=== PATIENT | male | born 1955 | race Caucasian/White ===

== ENCOUNTER → 2020-08-01 14:41 | Outpatient (CLI) | payer BC, SELFPAY ==
--- NOTE | ~2020-08-01 | CT_ITS ---
EXAMINATION: CT lung screening DATE: 08/01/2020 14:55 INDICATION: Personal history of nicotine dependence, current smoker with 36 pack year history TECHNIQUE: Computed tomography (CT) of the chest was performed without intravenous contrast. The dose -length product (DLP) was 305.06 mGy-cm. Automated exposure control and iterative reconstruction tech [employer] were employed. COMPARISON: 07/15/2019 FINDINGS: There is mild emphysema. No suspicious pulmonary nodules are identified. The lungs are free of acute opacities. Mild chronic atelectasis is present in the lower lung zones. There is no pleural effusion or pneumothorax. No pathologically enlarged thoracic lymph nodes are identified. The heart size is normal. IMPRESSION: 1. Lung-RADS category 1: Negative. Continue annual screening with noncontrast low-dose chest CT in 12 months. Reviewed, dictated and finalized at location A. ERCIAL ACCOUNT OFFICER IMPRESSION: 1. Lung-RADS category 1: Negative. Continue annual screening with noncontrast l ow-dose chest CT in 12 months.
== END ==
PROVIDERS: PCP Internal Medicine; Visit Provider Internal Medicine
DX: Z12.2 Encounter for screening for malignant neoplasm of respiratory organs (principal); Z87.891 Personal history of nicotine dependence
CPT/HCPCS: G0297